=== PATIENT | male | born 1960 | race Caucasian/White ===

== ENCOUNTER 2018-07-21 22:42 | Emergency (ER) | payer OTHER ==
[2018-07-21 22:43] VITALS: BMI 29.0
[2018-07-21 22:46] VITALS: RESP 18; TEMP 98.3
[2018-07-21] MEDS ORDERED: Tdap Vaccine 0.5 ml Vial (10-64 yrs) IM ONE ×2 (23:02→23:14)
[2018-07-21] MEDS ORDERED: Naproxen 500 MG TAB PO ONE ×2 (23:03→23:13)
--- NOTE | 2018-07-21 23:05 | ED PDOC ---
HPI: Skin/Bite Injury Time Seen by Provider: 07/21/18 22:50 Chief Complaint (Nursing): Bite Chief Complaint (Provider): dog bite History Per: Patient History/Exam Limitations: no limitations Onset/Duration Of Symptoms: Mins Current Symptoms Are (Timing): Still Present Quality Of Symptoms: Painful Additional Complaint(s): 58 y/o male brought in by EMS for evaluation of dog bite to left thigh sustained prior to arrival. 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 Vaccine status of dog unknown at this time. Patient denies numbness/weakness right lower extremity. Last Tetanus unknown Past Medical History Reviewed: Historical Data, Nursing Documentation, Vital Signs Vital Signs: Last Vital Signs Temp 98.3 F 07/21/18 22:45 Pulse 86 07/21/18 22:45 Resp 18 07/21/18 22:45 BP 136/94 H 07/21/18 22:45 Pulse Ox 97 07/21/18 22:45 Primary Care Provider: Bright Saunders I - Medical History PMH: Anxiety, HTN - Surgical History Surgical History: Appendectomy - Family History Family History: States: No Known Family Hx - Home Medications Home Medications: Ambulatory Orders Medication Instructions Recorded Naproxen 375 mg PO Q8 PRN #21 tab 09/08/14 oxyCODONE/Acetaminophen [Percocet 1 ea PO Q6 #8 tab 09/08/14 5/325 mg Tab] Ciprofloxacin HCl [Cipro] 500 mg PO BID #19 tab 07/21/18 Metronidazole [Flagyl] 500 mg PO TID #29 tab 07/21/18 Naproxen [Naprosyn] 500 mg PO Q12 PRN #20 tablet 07/21/18 - Allergies Allergies/Adverse Reactions: Allergies Allergy/AdvReac Type Severity Reaction Status Date / Time Penicillins Allergy SWELLING Verified 07/21/18 22:47 Review of Systems ROS Statement: Except As Marked, All Systems Reviewed And Found Negative Musculoskeletal: Positive for: Leg Pain Physical Exam - Reviewed Nursing Documentation Reviewed: Yes Vital Signs Reviewed: Yes - Physical Exam Appears: Positive for: Well, Non-toxic, No Acute Distress Extremity: Positive for: Normal ROM, Other (1cmx0.5cm skin avulsion/puncture wound left lateral thigh with + adipose tissue exposed. No active bleeding. + surrounding excorations and erythema distally. FROM. Distal NV/motor intact) Neurological/Psych: Positive for: Awake, Alert, Oriented (x3) - ECG O2 Sat by Pulse Oximetry: 97 - Progress ED Course And Treament: -Adacel IM -Cipro PO -Flagyl PO -Naproxen PO -wound care Patient was able to obtain vaccine record of dog, rabies up to date. Wound irrigated with 300mL NS, bacitracin applied, bandage applied. Patient educated on wound healing by secondary intention Advised follow up PMD within 2-3 days Rx Cipro, Flagy, Naproxen given Return precautions given Disposition - Clinical Impression Clinical Impression: Open wound of left thigh due to dog bite Counseled Patient/Family Regarding: Diagnosis, Need For Followup, Rx Given - Disposition Disposition: Routine/Home Disposition Time: 23:50 Condition: STABLE Prescriptions: Ciprofloxacin HCl [Cipro] 500 mg PO BID #19 tab Metronidazole [Flagyl] 500 mg PO TID #29 tab Naproxen [Naprosyn] 500 mg PO Q12 PRN #20 tablet PRN Reason: Pain, Moderate (4-7) Instructions: Animal and Human Bites Forms: [facility] (Japanese), [facility] ED School/Work Excuse
[2018-07-22 00:20] VITALS: BP 130/79; PULSE 72; O2SAT 99
== END 2018-07-22 00:35 | disposition home or self-care (01) ==
LOC: H.ER 22:42
DX: S71.102A Unspecified open wound, left thigh, initial encounter (principal); Z88.0 Allergy status to penicillin; S71.152A Open bite, left thigh, initial encounter; I10 Essential (primary) hypertension; F41.9 Anxiety disorder, unspecified; W54.0XXA Bitten by dog, initial encounter; Z23 Encounter for immunization